=== PATIENT | male | born 1955 | race Caucasian/White ===

== ENCOUNTER → 2017-07-18 11:48 | Outpatient (CLI) | payer BC, SELFPAY ==
[2017-07-18 12:17] LABS: Blood Urea Nitrogen 12 mg/dL (7-18); Creatinine,Serum 1.02 mg/dL (0.70-1.30); Estimated Glomerular Filt Rate 74 ml/min (>60); GFR (African American) 89 ML/MIN (>60)
== END ==
PROVIDERS: PCP Internal Medicine; Visit Provider Internal Medicine
DX: R22.9 Localized swelling, mass and lump, unspecified (principal)
CPT/HCPCS: 36415; 82565; 84520

== ENCOUNTER → 2017-07-22 08:35 | Outpatient (CLI) | payer BC, SELFPAY ==
--- NOTE | 2017-07-22 08:47 | CT_ITS ---
CT humerus RT wo/w con CLINICAL INDICATION: ITS.REASON: RT AXILLA MASS ORDERING PHYSICIAN: Florian Boo PATIENT AGE: 62 years TECHNIQUE: Axial images are obtained without and with contrast. 75 mL Isovue-370 utilized. Sagittal and coronal reformatted images were also generated and reviewed. COMPARISON: None FINDINGS: There is diffuse bilateral axillary adenopathy which is more extensive on the right. Bulky bilateral axillary adenopathy is present. The right axillary mimi mass measures a total of 14 x 5.4 cm. The largest single node measures approximately 6.9 x 3.5 cm. There are enlarged bilateral cervical lymph nodes which are incompletely imaged. There is also adenopathy within the mediastinum and right hilum. Aortopulmonic lymph nodes measure up to 2.9 x 2.1 cm and right hilar lymph node measures up to 2.2 x 3 cm. There is a well-circumscribed cystic lesion in the right humeral head which measures 2 cm consistent with a subarticular cyst. Osteoarthritic changes are present in the right glenohumeral joint and acromioclavicular joint. Osteoarthritic changes are also present in the left glenohumeral joint and acromioclavicular joint. Incidental note is made of enlarged left lobe of the thyroid gland with isodense changes with a left thyroid nodule measures 19 x 8 mm. IMPRESSION: 1. Extensive axillary, cervical, mediastinal, and hilar adenopathy consistent with lymphoma. Metastatic disease is included in the differential diagnosis. The palpable right axillary mass corresponds to a mimi mass. Consider dedicated CT of the neck, chest, abdomen, and pelvis with IV and oral contrast for further evaluation and staging purposes. 2. Osteoarthritic changes of the shoulders with 2 cm subarticular cyst of the right humeral head
== END ==
PROVIDERS: Family Provider Internal Medicine; PCP Internal Medicine; Visit Provider Internal Medicine
DX: R22.31 Localized swelling, mass and lump, right upper limb (principal)
CPT/HCPCS: 73202; Q9967

== ENCOUNTER → 2017-07-27 08:33 | Outpatient (CLI) | payer BC, SELFPAY ==
--- NOTE | 2017-07-27 08:48 | CT_ITS ---
CT abdomen pelvis w con CLINICAL INDICATION: ITS.REASON: R AXILLARY MASS,LYMPHADENOPATHY,LYMPHOMA ORDERING PHYSICIAN: Florian Boo PATIENT AGE: 62 years COMPARISON: None TECHNIQUE: Axial images obtained with sagittal and coronal reformats. PROCEDURE: Oral Contrast: Redicat IV Contrast: 75 mL Isovue-370. FINDINGS: The liver, gallbladder, adrenal glands, pancreas, and right kidney have an unremarkable.. There are 2 left renal cyst the largest in the lower pole at 2 cm. The spleen is enlarged measuring 20 cm cephalad to caudad. There are multiple mildly enlarged lymph nodes within the mesentery's and retroperitoneum. There is a 2.6 x 1.6 cm node in the celiac region. Enlarged nodes are present in the portal area measuring up to 2.9 cm. Bulky bilateral inguinal adenopathy is present with nodes on the right measuring up to 3.6 cm and on the left measuring up to 4.7 x 2.6 cm No abnormal fluid collections. Unremarkable appendix. No evidence of diverticulitis. No acute bony anomalies. There are degenerative changes of lumbar spine there is fusion of the right SI joint. IMPRESSION: Abdominal and retroperitoneal adenopathy as well as bilateral inguinal adenopathy along with enlarged spleen. These findings are consistent with lymphoma.
--- NOTE | 2017-07-27 08:48 | CT_ITS ---
CT chest w con HISTORY: ITS.REASON: R AXILLARY MASS ADENOPATHY,LYMPHOMA ORDERING PHYSICIAN: Florian Boo PATIENT AGE: 62 years TECHNIQUE: Axial images obtained following the administration of 75 mL of Isovue 370 . Sagittal, and coronal reformatted images are also generated and reviewed. COMPARISON: None FINDINGS: There is a 19 x 9 mm hypodense nodule in the lower pole the left lobe of the thyroid gland. There is minimal deviation of the thyroid to the right at this level. There is extensive bilateral axillary adenopathy more bulky in the right axilla as described on the previous upper extremity CT. The largest node in the right axilla measures up to 6 x 3.7 cm with multiple bulky nodes in the right and left axilla. Some of the nodes in the right axilla show decreased attenuation likely due to underlying necrosis There is mediastinal and hilar adenopathy as well. Largest node in the right hilum 3.2 x 2.3 cm. The spinal nodes are present in the paratracheal region and AP window with the largest mediastinal node measuring 3 x 1.6 cm in the AP window. There are mild dependent changes in the lung bases. No lobar consolidation or suspicious pulmonary parenchymal nodule evident. No effusions. No evidence of aortic aneurysm. IMPRESSION: 1. Extensive bilateral axillary adenopathy more bulky on the right with mediastinal and hilar adenopathy. Lymphoma is the primary consideration. Metastatic disease is also a consideration. 2. No suspicious pulmonary nodule or effusion. 3. 1.9 cm left thyroid nodule. Ultrasound may be of further value
--- NOTE | 2017-07-27 08:48 | CT_ITS ---
CT soft tissue neck w con INDICATION: Cervical adenopathy, axillary or mediastinal adenopathy ITS.REASON: R AXILLARY MASS,ADENOPATHY,LYMPHOMA ORDERING PHYSICIAN: Florian Boo PATIENT AGE: 62 years COMPARISON: None TECHNIQUE: Axial images are obtained with 75 mg Isovue-370 contrast. Sagittal and coronal reformatted images are reviewed as well. FINDINGS: No obvious nasopharyngeal mass. A 12 mm slightly hyperdense nodule present in the major aspect of the right parotid gland. 9 millimeter nodules present in the posterior aspect of the right parotid gland. 19 mm heterogeneous nodule involving the lower pole the left lobe of the thyroid gland. There are scattered mildly enlarged lymph nodes within the neck bilaterally.. The lymph node enlargement is diffuse on both sides. There are bilateral level 1 through level 5 nodes as well as level 7 nodes. Individual nodes measure up to 2 x 1.2 cm in the deep cervical chain on the right and 2 cm in the left supraclavicular region. No abscess. No acute bony anomalies. Multilevel degenerative disc disease is present in the cervical spine. IMPRESSION: 1. Extensive bilateral cervical adenopathy. 2. Right parotid nodules nonspecific. 3. 19 mm heterogeneous nodule the left lobe of the thyroid gland
== END ==
PROVIDERS: Family Provider Internal Medicine; PCP Internal Medicine; Visit Provider Internal Medicine
DX: R22.9 Localized swelling, mass and lump, unspecified (principal); R59.0 Localized enlarged lymph nodes
CPT/HCPCS: 70491; 71260; 74177; Q9967

== ENCOUNTER → 2017-07-29 15:25 | Outpatient (CLI) | payer BC, SELFPAY ==
[2017-07-29 15:49] LABS: Basophils % 0.7 % (0.1-2.0); Eosinophils # 0.3 K/mm3 (0.0-0.4); Eosinophils % 4.7 % (0.1-12.0); Hematocrit 39.3 % (42.0-52.0); Hemoglobin 13.1 g/dL (14.1-18.0); Lymphocytes # 2.4 K/mm3 (0.7-4.5); Lymphocytes % 38.8 K/mm3 (10-50); Mean Corpuscular HGB Conc 33.2 g/dL (31.8-35.4); Mean Corpuscular Hemoglobin 29.5 pg (27.0-31.2); Mean Corpuscular Volume 88.7 fl (80-94); Mean Platelet Volume 7.5 fl (7.4-10.4); Monocytes # 0.5 K/mm3 (0.1-1.0); Neutrophils # 2.9 K/mm3 (1.8-7.8); Neutrophils % 47.8 % (37.0-80.0); Platelet Count 180 K/mm3 (142-424); Red Blood Count 4.43 M/mm3 (4.60-6.20); Red Cell Distribution Width 13.3 % (11.5-17.5); White Blood Count 6.1 K/mm3 (4.8-10.8)
[2017-07-29 17:18] LABS: Anion Gap 11.2 mEq/L (5-15); Blood Urea Nitrogen 16 mg/dL (7-18); Carbon Dioxide 28 mmol/L (21.0-32.0); Chloride 104 mmol/L (98-107); Creatinine,Serum 1.29 mg/dL (0.70-1.30); Estimated Glomerular Filt Rate 56 ml/min (>60); GFR (African American) 68 ML/MIN (>60); Glucose 83 mg/dL (74-106); Potassium 4.2 mmoL/L (3.5-5.1); Sodium 139 mmol/L (136-145)
== END ==
PROVIDERS: PCP Internal Medicine; Visit Provider Surgery
DX: R59.9 Enlarged lymph nodes, unspecified (principal); Z01.812 Encounter for preprocedural laboratory examination
CPT/HCPCS: 36415; 80048; 85025

== ENCOUNTER 2017-08-02 09:21 | Day surgery (SDC) | payer BC, SELFPAY ==
[2017-08-01 14:50] VITALS: BMI 30.1
[2017-08-02] VITALS (10 sets, daily range): BP systolic 133–151; BP diastolic 71–99; PULSE 74–87; RESP 15–21; TEMP 36.1–43; O2SAT 92–98
--- NOTE | 2017-08-02 10:02 | HMH.ANESCL ---
[facility] Anesthesia Checklist - Patient Identification Patient Identification: Arm Band - Structural Data Admitted From: Home Planned Operative Procedure/s: excision right axillary mass Consent for Planned Operative Procedure(s) Verified: Yes Verified Documents: Surgical Consent, History and Physical - NPO Status Verified Time NPO: 00:00 - Additional verifications Anesthesia Reactions: No - Airway Assessment C-Spine Mobility Assessed: Yes (mp2) TMJ Mobility Assessed: Yes Dentition: Good Dentition - Neurological Assessment Level of Consciousness: Awake, Alert - Anesthesia Plan Anesthesia Risk discussed: Yes Anesthesia Plan: Verified ASA Class: II Anesthesia Type: General [facility] Anesthesia HX Medical History: Denies:: Cancer, Diabetes Mellitus Type 1, Diabetes Mellitus Type 2, Internal Pacemaker, MRSA, Seizures Other Medical History: Denies: Blood Transfusion Reaction Other Surgeries: Yes: Hernia Repair. No: Pacemaker Amputation: No Fractures: Yes (rib fractures) Comment: back surgery *Family Hx:: No significant family history
--- NOTE | 2017-08-02 12:29 | HMH.OPNOTE ---
Date of procedure: 08/02/17 Pre-op Diagnosis:: Lymphadenopathy Post-op diagnosis:: same Procedure performed:: Excisional biopsy of deep right axillary adenopathy Surgeon:: Rico Hernandez MD [employer] SUPERVISOR:: Konrad Moss Anesthesia: LMA Estimated blood loss (mL): 30 Clinical Note:: Patient is a 52-year-old white male who was referred by Dr. Florian Boo for biopsy for possible lymphoma. About 6 or 8 weeks ago patient had noted a palpable knot in the right axillary region. He subsequently developed more extensive swelling of that area underwent limited CT scan. This revealed rather extensive bilateral axillary adenopathy. He then underwent CT scan of the neck chest abdomen and pelvis revealing extensive cervical, bilateral axillary, abdominal, retroperitoneal, and inguinal adenopathy. He was sent for surgical consultation for biopsy. Patient admits to night sweats. He has had about a 10 pound weight loss. Given the most clinically apparent adenopathy in the right axilla and was made for excisional biopsy at this site for definitive diagnosis. Operative findings:: He has a confluence of matted adenopathy in the right axilla and chest wall area. Lymph nodes were somewhat necrotic. Operative note:: Consent was obtained the patient was taken to the operating room. He was positioned in a supine position. General anesthesia was induced via LMA. Right axilla was prepped and draped in the standard surgical fashion. Skin was marked with a skin marker for planned incision along normal skin lines. Skin incision was performed and dissection was carried down through subcutaneous tissues and axillary fascia using electrocautery. Lymph nodes were encountered. These were dissected free using blunt and sharp Metzenbaum dissection. Small lymphatics were clipped with micro hemoclips. Larger lymphatics were clipped with medium clips. Lymph nodes were fixed to one another, matted, and somewhat necrotic appearing. Ultimately several lymph nodes were dissected free. 1 of the lymph nodes was incised on the back table and sent and lymph node fixative. Remaining lymph nodes were sent for histopathologic analysis in formalin. The wound was irrigated. There appeared to be good hemostasis. Axillary fascia was closed with interrupted 2-0 Vicryl. Subdermal tissues were reapproximated with interrupted 2-0 Vicryl. Skin was closed with 4-0 Monocryl in a subcuticular fashion. Clean dry sterile dressing was applied. Condition: stable Disposition: PACU Specimens:: Right axillary adenopathy Complications:: None
--- NOTE | 2017-08-02 12:36 | P.PN_ITS ---
[facility] Anesthesia Record Part II Discharge Time: 13:05 Destination: [facility] PACU nurse assessment reviewed?: Yes Patient Condition:: Good Anesthesia Complications:: None
--- NOTE | 2017-08-02 12:36 | P.PN_ITS ---
[facility] Anesthesia Record Part I Intake, IV Amount: 1,300 Estimated blood loss (mL): 20 Urine output (mL): 0 Blood Pressure: 143/97 SaO2: 95 Pulse Rate: 74 Respiratory Rate: 16 Temperature: 97 F Patient is:: Drowsy, Stable Stable to PACU at:: 12:35
--- NOTE | 2017-08-02 12:36 | HMH.ANESII ---
[facility] Anesthesia Record Part II Discharge Time: 13:05 Destination: [facility] PACU nurse assessment reviewed?: Yes Patient Condition:: Good Anesthesia Complications:: None
== END 2017-08-02 13:39 | disposition home or self-care (01) ==
LOC: OR 09:23
PROVIDERS: Family Provider Internal Medicine; PCP Internal Medicine; Visit Provider Surgery
PROC: (CPT 38525; principal; 2017-08-02 11:00)
DX: R59.1 Generalized enlarged lymph nodes (principal)
CPT/HCPCS: 38525; 96374; J2405

== ENCOUNTER → 2018-02-10 16:30 | Outpatient (CLI) | payer MEDICARE, BC, SELFPAY | PROVIDERS: Family Provider Internal Medicine; PCP Internal Medicine; Visit Provider Physician Assistant | DX: C83.10 Mantle cell lymphoma, unspecified site (principal) | CPT/HCPCS: 36415; 86850 ==

== ENCOUNTER → 2018-02-11 08:10 | Outpatient (CLI) | payer MEDICARE, BC, SELFPAY ==
[2018-02-11] VITALS (19 sets, daily range): BP systolic 119–142; BP diastolic 70–89; PULSE 78–101; RESP 18; TEMP 36.8–37.4; O2SAT 96–100; BMI 25.7
[2018-02-11 15:36] LABS: Hematocrit 21.3 % (42.0-52.0); Hemoglobin 7.4 g/dL (14.1-18.0)
== END ==
LOC: OUTP 08:15 → INF 09:22
PROVIDERS: Referring Provider Internal Medicine Hematology & Oncology; Visit Provider Internal Medicine
DX: C83.10 Mantle cell lymphoma, unspecified site (principal); D64.9 Anemia, unspecified
CPT/HCPCS: 36430; 85014; 85018; P9016

== ENCOUNTER 2018-02-17 09:59 | Outpatient (CLI) | payer MEDICARE, BC, SELFPAY ==
[2018-02-17] VITALS (22 sets, daily range): BP systolic 111–146; BP diastolic 66–86; PULSE 88–109; RESP 18–20; TEMP 36.4–37.4; O2SAT 95–100; BMI 25.4
[2018-02-17 20:11] LABS: Hematocrit 21.6 % (42.0-52.0); Hemoglobin 7.6 g/dL (14.1-18.0)
--- NOTE | 2018-02-18 12:28 | PC.NURSE ---
[address] Treviño who is mine production engineer for Dr Ford. Per Dr Treviño, pt received 2 units PRBC's on 02/17. pt H/H 1hr post on 02/17 @ 1944 was 7.6/21.6. was asked how she would like to proceed. Dr Treviño states that they typically do not transfuse unless pt H/H is less than 7 or they are symptomatic. informed md that the pt is unsure when they are to have more blood drawn or when they follow up with MD. Per dr Treviño recheck pt H/H tomorrow 02/19. ok to proceed with pt iv fluid infusion.
== END 2018-02-17 19:45 | disposition home or self-care (01) ==
PROVIDERS: Family Provider Internal Medicine; PCP Internal Medicine; Visit Provider Internal Medicine Hematology & Oncology
DX: C83.10 Mantle cell lymphoma, unspecified site (principal)
CPT/HCPCS: 36415; 36430; 85014; 85018; 86850; 96360; 96361; P9016

== ENCOUNTER 2018-02-18 11:54 | Outpatient (CLI) | payer MEDICARE, BC, SELFPAY ==
[2018-02-18 12:15] VITALS: BP 136/89; PULSE 109; RESP 16; TEMP 36.9; O2SAT 99
--- NOTE | 2018-02-18 12:31 | PC.NURSE ---
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 Per Dr Treviño, pt received 2 units PRBC's on 02/17. pt H/H 1hr post on 02/17 @ 1944 was 7.6/21.6. was asked how she would like to proceed. Dr Treviño states that they typically do not transfuse unless pt H/H is less than 7 or they are symptomatic. informed md that the pt is unsure when they are to have more blood drawn or when they follow up with MD. Per dr Treviño recheck pt H/H tomorrow 02/19. ok to proceed with pt iv fluid infusion.
== END 2018-02-18 14:25 | disposition home or self-care (01) ==
LOC: INF 11:54
PROVIDERS: Family Provider Internal Medicine; PCP Internal Medicine; Visit Provider Internal Medicine Hematology & Oncology
DX: C83.14 Mantle cell lymphoma, lymph nodes of axilla and upper limb
CPT/HCPCS: 96365; 96366

== ENCOUNTER 2018-02-19 09:38 | Outpatient (CLI) | payer MEDICARE, BC, SELFPAY ==
[2018-02-19 09:50] VITALS: BMI 24.9
[2018-02-19 09:55] VITALS: BP 125/83; PULSE 71; RESP 18; TEMP 36.9; O2SAT 100
[2018-02-19 10:47] LABS: Basophils % 1.1 % (0.1-2.0); Eosinophils % 0.2 % (0.1-12.0); Lymphocytes # 0.3 K/mm3 (0.7-4.5); Mean Corpuscular HGB Conc 34.4 g/dL (31.8-35.4); Mean Corpuscular Volume 84.4 fl (80-94); Mean Platelet Volume 7.9 fl (7.4-10.4); Monocytes % 6.3 % (1.7-9.3); Neutrophils # 0.3 K/mm3 (1.8-7.8); Neutrophils % 46.4 % (37.0-80.0); Red Blood Count 2.42 M/mm3 (4.60-6.20); Red Cell Distribution Width 15.3 % (11.5-17.5)
[2018-02-19 10:54] LABS: Hematocrit 20.4 % (42.0-52.0); Platelet Count 25 K/mm3 (142-424); White Blood Count 0.7 K/mm3 (4.8-10.8)
[2018-02-19 10:55] LABS: MANUAL DIFFERENTIAL MANUAL DIFFERENTIAL (MANUAL DIFF)
[2018-02-19 11:12] LABS: Lymphocytes % 28 % (10-50); Monocytes % 12 % (2-9); Neutrophils % 60 % (42-76); Total Cells Counted 25
[2018-02-19 11:13] LABS: Ovalocytes 1+; Platelet Estimate Marked Decrease; Tear Drop Cells 1+
--- NOTE | 2018-02-19 11:50 | PC.NURSE ---
Contacted MD's to have dairy consultant physician paged regarding critical labs. Dr Estrada returned call. h/h 7.0/20.4 plt 25 wbc 0.7. states that their threshold for transfusion is below 7. states that they will make arrangements for pt to be transfused within the next 24hrs. clarified if [facility] staff/this RN needed to complete anything for pt or md. Dr Estrada states no, just notify pt that they will be contacting him regarding his transfusion.
[2018-02-19 12:10] VITALS: BP 117/74; PULSE 66; RESP 16; O2SAT 98
== END 2018-02-19 12:27 | disposition home or self-care (01) ==
PROVIDERS: Family Provider Internal Medicine; PCP Internal Medicine; Visit Provider Internal Medicine Hematology & Oncology
DX: C83.14 Mantle cell lymphoma, lymph nodes of axilla and upper limb (principal)
CPT/HCPCS: 85007; 85025; 96365; 96366

== ENCOUNTER 2018-02-20 09:20 | Outpatient (CLI) | payer MEDICARE, BC, SELFPAY ==
[2018-02-20 09:35] VITALS: BP 124/85; PULSE 117; RESP 20; O2SAT 96
[2018-02-20 10:35] VITALS: BP 138/81; PULSE 105; RESP 18
[2018-02-20 11:35] VITALS: BP 144/82; PULSE 103; RESP 18
== END 2018-02-20 11:40 | disposition home or self-care (01) ==
LOC: INF 09:27
PROVIDERS: Family Provider Internal Medicine; PCP Internal Medicine; Visit Provider Internal Medicine Hematology & Oncology
DX: C83.10 Mantle cell lymphoma, unspecified site
CPT/HCPCS: 96360; 96361

== ENCOUNTER 2018-02-22 08:25 | Outpatient (CLI) | payer MEDICARE, BC, SELFPAY ==
[2018-02-22] VITALS (24 sets, daily range): BP systolic 133–159; BP diastolic 76–88; PULSE 86–109; RESP 16–18; TEMP 36.3–37.1; BMI 26.0
--- NOTE | 2018-02-22 12:03 | PC.NURSE ---
1200 - BLOOD STARTED TRANSFUSING AT 100 ML/HR AT THIS TIME.
--- NOTE | 2018-02-22 12:52 | PC.NURSE ---
1230 - INCREASED RATE TO 150 ML/HR AT THIS TIME.
--- NOTE | 2018-02-22 13:44 | PC.NURSE ---
1300 - INCREASED RATE TO 200 ML/HR AT THIS TIME.
--- NOTE | 2018-02-22 14:20 | PC.NURSE ---
1415 - BLOOD TRANSFUSION STARTED AT 100 ML/HR AT THIS TIME.
--- NOTE | 2018-02-22 15:15 | PC.NURSE ---
1445 - INCREASED RATE TO 150 ML/HR AT THIS TIME.
--- NOTE | 2018-02-22 15:25 | PC.NURSE ---
1515 - INCREASED RATE TO 200 ML/HR AT THIS TIME.
--- NOTE | 2018-02-22 16:25 | PC.NURSE ---
RATE WAS INCREASED TO 250 ML/HR AT 1545.
[2018-02-22 17:20] LABS: Hematocrit 26.5 % (42.0-52.0); Hemoglobin 9.2 g/dL (14.1-18.0)
--- NOTE | 2018-02-22 17:20 | PC.NURSE ---
1710 - BLOOD DRAWN FROM IV AT THIS TIME FOR 1 HR POST HGB/HCT. IV LEFT IN PLACE FOR INFUSION TOMORROW. STOCKINETTE PLACED OVER SITE TO HELP HOLD IN PLACE.
== END 2018-02-22 17:20 | disposition home or self-care (01) ==
LOC: INF 08:31
PROVIDERS: Family Provider Internal Medicine; PCP Internal Medicine; Visit Provider Internal Medicine Hematology & Oncology
DX: C83.14 Mantle cell lymphoma, lymph nodes of axilla and upper limb (principal)
CPT/HCPCS: 36415; 36430; 85014; 85018; 86850; 96360; 96361; P9016

== ENCOUNTER 2018-02-23 09:02 | Outpatient (CLI) | payer MEDICARE, BC, SELFPAY ==
[2018-02-23 09:10] VITALS: BP 151/91; PULSE 108; RESP 20; TEMP 36.6
[2018-02-23 09:40] VITALS: BP 147/85; PULSE 100; RESP 18
[2018-02-23 10:10] VITALS: BP 142/83; PULSE 93; RESP 16
[2018-02-23 10:40] VITALS: BP 144/81; PULSE 91; RESP 16
[2018-02-23 11:10] VITALS: BP 163/88; PULSE 93; RESP 18; TEMP 36.8
== END 2018-02-23 11:20 | disposition home or self-care (01) ==
LOC: INF 09:03
PROVIDERS: Family Provider Internal Medicine; PCP Internal Medicine; Visit Provider Internal Medicine Hematology & Oncology
DX: C83.14 Mantle cell lymphoma, lymph nodes of axilla and upper limb (principal)
CPT/HCPCS: 96360; 96361

== ENCOUNTER 2018-02-24 08:20 | Outpatient (CLI) | payer MEDICARE, BC, SELFPAY ==
[2018-02-24] VITALS (11 sets, daily range): BP systolic 133–145; BP diastolic 70–94; PULSE 66–108; RESP 20–22; TEMP 36.7–37.1; O2SAT 96–100; BMI 26.3
--- NOTE | 2018-02-24 10:08 | NVE_ITS ---
Venous Exam Indications: 729.81 Swelling of limb. Patient recently had port placement on left side of chest. Patient notes the edema has been getting worse over last couple of days. IMPRESSIONS Acute deep vein thrombosis involving theright internal jugular and rightsubclavian veins. History: Swelling in the right upper extermity. The patient has lymphoma and is undergoing chemotherapy. Risk factors: Malignancy: lymphoma. Right upper extremity venous duplex. Doppler flow study including spectral analysis, color and pelletier scale imaging. Location: Bedside. Patient status: Outpatient. CRITICAL FINDINGS - Reported to: [facility] - Read back and verified. - 02/24/18 - 11:00 - RUE positive for DVT in IJV.. Tables: Venous flow and imaging: + + + + Location Overall Flow properties + + + + Right internal jugular Totally occluded Absent; diminished spontaneity; noncompressible + + + + Right subclavian Partially occluded Partially compressible + + + + Right axillary Normal phasicity; spontaneous; normal augmentation; compressible + + + + Right brachial Normal phasicity; spontaneous; normal augmentation; compressible + + + + Right cephalic Normal phasicity; spontaneous; normal augmentation; compressible + + + + Right basilic Normal phasicity ; spontaneous; normal augmentation; compressible + + + + Right radial Compressible + + + + Right ulnar Compressible + + + + Normal phasicity; spontaneous; normal augmentation; compressible + + + + (Report amended ) Electronically signed by: Medhat [place] [id number]
[2018-02-24 14:05] LABS: Platelet Count 40 K/mm3 (142-424)
--- NOTE | 2018-02-24 15:30 | PC.NURSE ---
0830- CALLED AND SPOKE WITH YODIT AT [facility] OFFICE CONCERING HIS PLATELETS; PT ALSO HAD SWELLING IN HIS RIGHT ARM; VERY PAINFUL AND BOTHERING THE PATIENT; 0900- NEW ORDERS WERE RECIEVED TO GIVE PATIENT PLT'S 1010- DOPPLER WAS ORDERED TO RULE OUT DVT 1045- DOPPLER COMPLETED AND WAS POSITIVE FOR TWO DVT'S 1130- SENT REPORT TO YODIT AT ; MD OFFICE WILL DISCUSS TREATMENT WITH THE ; 1400- CALLED AND REPORTED POST PLT ; OFFICE WAS GOING TO ORDER LOVENOX FOR THE PATIENT TO TAKE AT HOME; WAS AWARE; PT WILL RETURN TOMORROW FOR FLUIDS AND RETURN TUESDAY FOR REPEAT LABS
== END 2018-02-24 14:00 | disposition home or self-care (01) ==
LOC: INF 08:37
PROVIDERS: Family Provider Internal Medicine; PCP Internal Medicine; Visit Provider Internal Medicine Hematology & Oncology
DX: C85.14 Unspecified B-cell lymphoma, lymph nodes of axilla and upper limb (principal); R60.1 Generalized edema
CPT/HCPCS: 36430; 85049; 86900; 86901; 93971; 96360; 96361; J1642; P9034

== ENCOUNTER → 2018-02-25 07:53 | Outpatient (CLI) | payer MEDICARE, BC, SELFPAY ==
[2018-02-25 08:17] VITALS: BP 145/88; BP 145/90; PULSE 116; PULSE 118; RESP 18; TEMP 36.6; O2SAT 98; BMI 27.3
[2018-02-25 11:00] VITALS: BP 148/82; PULSE 102; RESP 18; TEMP 36.8; O2SAT 97
== END ==
PROVIDERS: Family Provider Internal Medicine; PCP Internal Medicine; Visit Provider Internal Medicine Hematology & Oncology
DX: C83.14 Mantle cell lymphoma, lymph nodes of axilla and upper limb (principal)
CPT/HCPCS: 96360; 96361; G0463